=== PATIENT | female | born 1985 | race Caucasian/White ===

== ENCOUNTER 2016-05-21 01:06 | Emergency (ER) | payer OTHER | END 2016-05-21 03:19 | disposition home or self-care (01) | LOC: ER 01:06 | DX: M54.5 Low back pain (principal); G89.29 Other chronic pain; F17.210 Nicotine dependence, cigarettes, uncomplicated; Z79.899 Other long term (current) drug therapy; Z88.5 Allergy status to narcotic agent | CPT/HCPCS: 99282 ==

== ENCOUNTER 2016-06-01 00:41 | Emergency (ER) | payer OTHER ==
[2016-06-01 01:24] LABS: URINE BILIRUBIN NEGATIVE (NEGATIVE); URINE BLOOD TRACE (NEGATIVE); URINE GLUCOSE (UA) NORMAL (NORMAL); URINE KETONE NEGATIVE (NEGATIVE); URINE LEUKOCYTE ESTERASE TRACE (NEGATIVE); URINE NITRATE NEGATIVE (NEGATIVE); URINE PROTEIN NEGATIVE (NEGATIVE); UROBILINOGEN NORMAL mg/dL (<1.0)
[2016-06-01 01:52] LABS: BASO # 0.1 10_X3_uL (0.0-0.1); BASO % 0.3 % (0.1-1.2); EOS # 0.3 10_X3_uL (0.0-0.4); EOS % 2.2 % (0.7-5.8); GRAN # 8.8 10_X3_uL (1.6-6.1); GRAN % 56.4 % (34.0-71.1); HEMATOCRIT 40.3 % (34-45); HEMOGLOBIN 13.6 g/dL (11.2-15.7); LYMPH # 5.3 10_X3_uL (1.2-3.7); LYMPH % 34.1 % (19.3-51.7); MEAN CORPUSCULAR HEMOGLOBIN 28.7 pg (27.0-33.0); MEAN CORPUSCULAR HGB CONC 33.7 g/dL (32.0-36.0); MEAN PLATELET VOLUME 11.2 fl (7.5-11.5); MONO # 1.1 10_X3_uL (0.2-0.9); PLATELET COUNT 239 x10_3/uL (182-369); RED BLOOD COUNT 4.74 x10_6/uL (3.9-5.2); RED CELL DISTRIBUTION WIDTH 14.2 % (11.7-14.4); WHITE BLOOD COUNT 15.5 x10_3/uL (4.0-10.0)
[2016-06-01 01:55] LABS: URINE RBC 0-5 /[HPF] (0-2)
[2016-06-01 01:56] LABS: URINE BACTERIA TRACE (NONE SEEN); URINE SQUAMOUS EPITHELIAL CELL 0-10 /[HPF] (NONE SEEN); URINE WBC 0-5 /[HPF] (0-5)
[2016-06-01 02:11] LABS: ALBUMIN 4.1 gm/dL (3.4-5.0); ALKALINE PHOSPHATASE 99 U/L (50-136); ALT/SGPT 17 U/L (3.5-33.9); AMYLASE 47 U/L (15.62-74.58); AST/SGOT 13 U/L (7.04-26.96); BLOOD UREA NITROGEN 10 mg/dL (7-18); CALCIUM 9.2 mg/dL (8.7-10.7); CARBON DIOXIDE 24 mmol/L (21-32); CREATININE 0.5 mg/dL (0.6-1.3); GLUCOSE,RANDOM 117 mg/dL (70-99); LIPASE 28 U/L (6.75-60.75); POTASSIUM 3.7 mmol/L (3.5-5.1); SODIUM 138 mmol/L (136-145)
== END 2016-06-01 02:45 | disposition home or self-care (01) ==
LOC: ER 00:41
PROVIDERS: General Practice
DX: N39.0 Urinary tract infection, site not specified (principal); R31.9 Hematuria, unspecified; R53.81 Other malaise; E66.01 Morbid (severe) obesity due to excess calories; F41.9 Anxiety disorder, unspecified; G89.29 Other chronic pain; G62.9 Polyneuropathy, unspecified; F17.210 Nicotine dependence, cigarettes, uncomplicated; R10.32 Left lower quadrant pain; Z79.899 Other long term (current) drug therapy; Z88.5 Allergy status to narcotic agent
CPT/HCPCS: 36415; 80053; 81001; 82150; 83690; 84443; 85025; 87400; 99070; 99284

== ENCOUNTER 2016-07-05 01:37 | Emergency (ER) | payer OTHER ==
[2016-07-05 02:19] LABS: BASO # 0.1 10_X3_uL (0.0-0.1); BASO % 0.4 % (0.1-1.2); EOS # 0.2 10_X3_uL (0.0-0.4); EOS % 1.4 % (0.7-5.8); GRAN # 8.2 10_X3_uL (1.6-6.1); GRAN % 60.3 % (34.0-71.1); HEMATOCRIT 39.5 % (34-45); HEMOGLOBIN 13.1 g/dL (11.2-15.7); LYMPH # 4.4 10_X3_uL (1.2-3.7); MEAN CORPUSCULAR HEMOGLOBIN 28.4 pg (27.0-33.0); MEAN CORPUSCULAR HGB CONC 33.2 g/dL (32.0-36.0); MEAN CORPUSCULAR VOLUME 85.5 fL (79-95); MEAN PLATELET VOLUME 10.5 fl (7.5-11.5); MONO # 0.8 10_X3_uL (0.2-0.9); MONO % 5.9 % (4.7-12.5); PLATELET COUNT 282 x10_3/uL (182-369); RED BLOOD COUNT 4.62 x10_6/uL (3.9-5.2); WHITE BLOOD COUNT 13.6 x10_3/uL (4.0-10.0)
[2016-07-05 02:35] LABS: BLOOD UREA NITROGEN 11 mg/dL (7-18); CALCIUM 9.2 mg/dL (8.7-10.7); CARBON DIOXIDE 23 mmol/L (21-32); CREATININE 0.6 mg/dL (0.6-1.3); GLUCOSE,RANDOM 121 mg/dL (70-99); POTASSIUM 3.5 mmol/L (3.5-5.1); SODIUM 141 mmol/L (136-145)
== END 2016-07-05 03:00 | disposition home or self-care (01) ==
LOC: ER 01:37
PROVIDERS: Emergency Medicine
DX: F41.0 Panic disorder [episodic paroxysmal anxiety] (principal); R42 Dizziness and giddiness; R06.02 Shortness of breath; E66.9 Obesity, unspecified; F17.210 Nicotine dependence, cigarettes, uncomplicated; Z88.5 Allergy status to narcotic agent; Z97.5 Presence of (intrauterine) contraceptive device
CPT/HCPCS: 36415; 71010; 80048; 82553; 84484; 85025; 93005; 99283-25